=== PATIENT | female | born 1960 | race Caucasian/White ===

== ENCOUNTER 2017-12-28 18:58 | Emergency (ER) | payer OTHER ==
[~2017-12-28] VITALS: Ht 180.3 cm; Wt 81.0 kg
[2017-12-28 19:03] VITALS: BP 142/88
== END 2017-12-28 19:50 | disposition home or self-care (01) ==
LOC: ED 19:45
DX: H10.023 Other mucopurulent conjunctivitis, bilateral (principal); Z88.1 Allergy status to other antibiotic agents
CPT/HCPCS: 99283